=== PATIENT | male | born 1960 | race Caucasian/White ===

== ENCOUNTER 2023-07-19 14:45 | Outpatient (CLI) | payer OTHER ==
--- NOTE | 2023-07-19 15:42 | XRAY Report ---
PROCEDURE: Chest 2V INDICATIONS: COVID-19 WITH COUGH TECHNIQUE: 2 views of the chest were acquired. COMPARISON: None. FINDINGS: Surgical changes and devices: None. Lungs and pleura: No pleural effusions or pneumothorax. Lungs are clear. Mediastinum: Mediastinal contours appear normal. Heart size is normal. Bones and chest wall: No suspicious bony lesions. Overlying soft tissues appear unremarkable. IMPRESSION: No acute cardiopulmonary process. Reviewed by: Jered Pappas MD on 07/19/2023 3:41 PM PST Approved by: Jered Pappas MD on 07/19/2023 3:41 PM PST Station ID: [id number]
== END 2023-07-19 15:00 | disposition home or self-care (01) ==
LOC: DI.N 14:45
PROVIDERS: ATTEND Family Medicine
DX: U07.1 COVID-19 (principal); R05.9 Cough, unspecified